=== PATIENT | female | born 1960 | race American Indian/Alaskan Native ===

== ENCOUNTER 2018-02-15 09:39 | Outpatient (CLI) | payer OTHER ==
--- NOTE | 2018-02-18 11:05 | PET Report ---
PET/CT:02/15/18 09:39:00 CLINICAL: Restaging left upper outer quadrant breast cancer. RADIOPHARMACEUTICAL: 14.817mCi F18-FDG. COMPARISON: None. TECHNIQUE- Following intravenous injection of F-18 FDG and an approximately 60 minute uptake period, CT and PET images from the mid skull to the upper thighs were acquired with the patient in the fasted state. No contrast was administered. The CT protocol used for this PET CT study is designed for attenuation correction and anatomic localization of abnormalities. This mixing machine tender cork rod CT is not desired to produce and cannot replace, [id number] diagnostic CT scans with specific imaging protocols for different body parts and indications. Plasma glucose at the time of this test: 166g/dl. The standardized uptake values (SUV) are normalized to patient body weight and indicate the highest activity concentration (SUV max) in a given disease site. FINDINGS: Brain--Physiologic FDG uptake in the visualized regions of the brain. Neck--Physiologic FDG uptake in mucosal structures.. Chest--Physiologic FDG uptake in mediastinal blood pool and myocardium. Lungs/Pleura/pericardium--Extensive FDG avid pleural thickening with SUV 9.2. The upper medial pleura is the thickest and has the highest FDG uptake. It measures approximately 3.7 cm and blends with the superior mediastinum. No lung mass is identified. Bilateral pleural effusions, left larger than right. Calcification of the inferior left pleura. Moderate pericardial thickening and small pericardial effusion but no FDG uptake in the pericardium. Thoracic nodes--FDG uptake in the left hilum with SUV 5.2. Less FDG uptake in a left paratracheal lymph node. A right suprapatellar lymph node is mildly enlarged with SUV 4.1. Hepatobiliary--No abnormal uptake. Liver background SUV mean, as a reference for comparing FDG studies, is 4.0 . No liver mass. Spleen--No abnormal uptake. Pancreas--No abnormal uptake. Adrenal Glands--No abnormal uptake. Kidneys/Ureters/Bladder--No abnormal uptake. Abdominopelvic Nodes--No abnormal uptake. Bowel/Peritoneum/Mesentery--No abnormal uptake. Pelvic organs--No abnormal uptake. Bones/Soft Tissues--No abnormal uptake. No suspicious bone lesions. Other findings: Status post left mastectomy. IMPRESSION- 1. Extensive FDG avid left pleural thickening which is suspicious for tumor. However, much of this activity may be benign if there has been pleurodesis procedure performed. Calcification of the inferior left pleura suggests that such a procedure has been done. 2. FDG avid left hilar, left paratracheal and right supraclavicular lymph nodes are suspicious for metastasis. 3. No evidence of hepatic or skeletal metastasis.
== END 2018-02-15 09:40 | disposition home or self-care (01) ==
LOC: PET 09:39
DX: C50.412 Malignant neoplasm of upper-outer quadrant of left female breast (principal); J90 Pleural effusion, not elsewhere classified; J94.8 Other specified pleural conditions; M54.5 Low back pain; R59.9 Enlarged lymph nodes, unspecified; R63.4 Abnormal weight loss; Z90.12 Acquired absence of left breast and nipple
CPT/HCPCS: 78815; 82962; A9552